=== PATIENT | female | born 1980 | race Two or more races ===

== ENCOUNTER 2024-07-24 17:11 | Emergency (ER) | payer MEDICAID, SELFPAY ==
[2024-07-24 17:41] VITALS: BP 121/80; PULSE 78; RESP 16; TEMP 36.5; O2SAT 98; BMI 26.8
--- NOTE | 2024-07-24 17:45 | PD.EDLOWEX ---
Lower Extremity Injury RME/HPI General Chief Complaint: Extremity Injury, Lower Stated Complaint: BILATERAL HIP PAIN, FALL TODAY Source: patient Arrival date/time: 07/24/24 17:11 44-year-old female with a history of a hip replacement presents to the emergency room with a chief complaint of bilateral hip pain after a fall that occurred this morning. Mode of arrival: ambulatory Limitations: no limitations Related Data Previous Rx's ?Medication ?Instructions ?Recorded acetaminophen 500 mg tablet 1,000 mg (2 x 500 mg) PO Q6H PRN 11/08/23 (Acetaminophen Extra Strength) pain #90 tabs aspirin 81 mg tablet,delayed 81 mg PO BID #60 tabs 11/08/23 release doxycycline hyclate 100 mg tablet 100 mg PO BID #14 tabs 11/08/23 gabapentin 300 mg capsule 300 mg PO .qhs #30 caps 11/08/23 sennosides 8.6 mg-docusate sodium 1 tab-cap PO QDAY #30 tabs 11/08/23 50 mg tablet (Senna-S) Allergies Allergy/AdvReac Type Severity Reaction Status Date / Time Penicillins Allergy Mild Abdominal Verified 04/30/24 08:29 Pain Review of Systems Review of Systems Systems Reviewed: All systems reviewed, normal except as documented Constitutional Constitutional: Reports system reviewed and no additional complaints, except as documented, Denies fatigue, Denies fever(s), Denies headache(s) and Denies weakness Eyes Eyes: Reports system reviewed and no additional complaints, except as documented, Denies blurry vision and Denies change in vision ENT Ears, Nose, Mouth, and Throat: Reports system reviewed and no additional complaints, except as documented, Denies otalgia, Denies headache(s), Denies nasal congestion, Denies throat swelling and Denies vertigo Cardiovascular Cardiovascular: Reports system reviewed and no additional complaints, except as documented, Denies chest pain, Denies dyspnea and Denies dyspnea on exertion Respiratory Respiratory: Reports system reviewed and no additional complaints, except as documented, Denies chest congestion, Denies cough, Denies dyspnea, Denies dyspnea on exertion and Denies wheezing Gastrointestinal Gastrointestinal: Reports system reviewed and no additional complaints, except as documented, Denies abdominal pain, Denies cramping, Denies nausea and Denies vomiting Genitourinary Genitourinary: Reports system reviewed and no additional complaints, except as documented Musculoskeletal Musculoskeletal: Reports system reviewed and no additional complaints, except as documented, Reports arthralgias and Reports joint swelling Integumentary/Breasts Skin/Breast: Reports system reviewed and no additional complaints, except as documented and Denies wounds Neurologic Neurologic: Reports system reviewed and no additional complaints, except as documented, Denies confusion, Denies headache(s), Denies lack of coordination, Denies vertigo and Denies weakness Psychiatric Psychiatric: Reports system reviewed and no additional complaints, except as documented, Denies anxiety, Denies confusion, Denies depression, Denies paranoia, Denies suicidal ideation and Denies tactile hallucinations Endocrine Endocrine: Reports system reviewed and no additional complaints, except as documented and Denies fatigue Hematologic/Lymphatic Hematologic/Lymphatic: Reports system reviewed and no additional complaints, except as documented and Denies lymphadenopathy Allergic/Immunologic Allergic/Immunologic: Reports system reviewed and no additional complaints, except as documented, Denies throat swelling, Denies urticaria and Denies wheezing Past Medical History Past Medical History NEUROLOGIC: Negative Neurological Disorders or Seizures CARDIAC: Negative Cardiac Disorders or Congestive Heart Failure RESPIRATORY: Negative Chronic Obstructive Pulmonary Disease (COPD) GASTROINTESTINAL: Negative Gastrointestinal Disorders or Hepatitis GENITOURINARY: Negative Genitourinary Disorders or Renal Disease REPRODUCTIVE: Positive Breast Cancer (right) and Previous Pregnancies MUSCULOSKELETAL: Positive Musculoskeletal Disorders and Arthritis ENDOCRINE: Negative Endocrine Disorders, Diabetes Mellitus Type 1 or Diabetes Mellitus Type 2 HEMATOLOGIC: Negative Blood Disorders OTHER HISTORY: Positive Hospitalization (surgery), Chemotherapy (2020), Radiation Therapy (2020), Chicken Pox, Measles, Mumps, Cancer and Breast Cancer (right); Negative Autoimmune Disease, Shingles, Blood Transfusions, Blood Transfusion Reaction or Anesthesia Reactions Family History FAMILY HISTORY: Negative Family Psychiatric Problems, Family Respiratory Disorders, Family Cardiac Disorders, Family Gastrointestinal Problems, Family Cancer or Family Anesthesia Reaction Surgical History SURGICAL: Positive Mastectomy (right), Tubal Ligation and Section Social History SMOKING STATUS: Never smoker ED Exam General Limitations: Present no limitations General appearance: Present alert and in no apparent distress Head Head exam: Present atraumatic Eye Eye exam: Present normal appearance, PERRL and EOMI ENT ENT exam: Present normal exam, normal oropharynx and mucous membranes moist Neck Neck exam: Present normal inspection, full ROM and trachea midline Chest Chest inspection: Present normal inspection and symmetric chest wall rise Respiratory Respiratory exam: Present normal lung sounds bilaterally Cardiovascular Cardiovascular exam: Present regular rate, normal rhythm and normal heart sounds Abdominal Exam Abdominal exam: Present soft and normal bowel sounds Extremities Exam Extremities exam: Present normal inspection and full ROM Expanded Lower Extremity Exam Hip/Pelvis exam: Present tenderness and pelvis stable; Absent full ROM, dislocation, external rotation, internal rotation or shortening Gait: observed and limited by pain Back Exam Back exam: Present normal inspection and full ROM Neurological Exam Neurological exam: Present alert, oriented X3 and CN II-XII intact Psychiatric Psychiatric exam: Present normal affect and normal mood Skin Skin exam: Present warm, dry, intact and normal color Course Quality Measures none Orders Category Date Time Status Ketorolac Inj [Toradol Inj] Med 07/24/24 17:44 Discontinued 30 mg IM X1 ONE Vital Signs Vital signs: Vital Signs Temperature 97.7 F 07/24/24 17:41 Pulse Rate 78 07/24/24 17:41 Respiratory Rate 16 07/24/24 17:41 Blood Pressure 121/80 07/24/24 17:41 Pulse Oximetry (%) 98 07/24/24 17:41 Oxygen Delivery Method Room Air 07/24/24 17:41 O2 saturation 98% within normal limits Extremity Injury, Lower MDM Narrative MDM Narrative:: 44-year-old female with a history of a hip replacement presents to the emergency room with a chief complaint of bilateral hip pain after a fall that occurred this morning. Clinically the patient appears nontoxic and in no apparent distress. Physical examination shows mild tenderness to the bilateral hips. X-rays were completed this morning and they were negative for any acute fractures. Patient states she came to the emergency room because her doctor was unable to give her her results till Monday. Patient was given pain medication and discharged patient was educated to follow-up with primary care provider return to the emergency room for any evidence of worsening signs or symptoms Patient data External records reviewed:: [facility] previous records Clinical information provided by:: patient Social determinants that could affect healthcare access:: none Patient has the following chronic illnesses:: No chronic illness How is presenting disease/condition affected by chronic disease/condition?: no chronic disease Evaluation data The following diagnostics were reviewed and interpreted by me:: lab results and radiology exam(s) Lab and/or radiology exams considered but not ordered:: Lab results and radiology exams considered in order Interpretation Summary: Hip [id number]: Total left hip arthroplasty. Satisfactory alignment No loosening of the prosthetic components Right hip intact Bones of the pelvis intact IMPRESSION: No acute hip or pelvic fracture Medications / Prescriptions Medications or Prescriptions considered but not ordered:: Medication given Medication administrations:: Medication Administration History Discontinued Medications Ketorolac Tromethamine (Ketorolac Inj 60 Mg/2 Ml Vial) 30 mg IM X1 ONE Stop: 07/24/24 17:45 Medication given Consultations Consultation(s) initiated? (list below): No Diagnosis Extremity Injury, Lower Differential Diagnosis: other (Hip fracture/hip contusion) Most likely diagnosis given after review of the tests above:: Hip contusion Admission Indicated Admission indicated?: not indicated Admission Request Was there a request for admission?: No Disposition Plan Disposition Plan: Discharge Discharge Attestation Discharge Attestation: The patient and all family members were given an opportunity to ask questions and understood the discharge instructions. Discharge instructions specifically effects, indications for sooner follow up or return to the emergency department, and the expected course of current diagnosis. Patient condition: Stable Discharge Plan Plan Patient Disposition: HOME (Self Care) Disposition Comment: Stable Prescriptions/Referrals Prescriptions/Med Rec: No Action sennosides-docusate sodium [Senna-S] 8.6-50 mg tablet 1 tab-cap PO QDAY Qty: 30 0RF aspirin 81 mg tablet,delayed release (DR/EC) 81 mg PO BID Qty: 60 0RF acetaminophen [Acetaminophen Extra Strength] 500 mg tablet 1,000 mg PO Q6H MDD 1000mg PRN (Reason: pain) Qty: 90 0RF gabapentin 300 mg capsule 300 mg PO .qhs Qty: 30 0RF doxycycline hyclate 100 mg tablet 100 mg PO BID Qty: 14 0RF Problem List Clinical Impression: Contusion of hip Patient/Caregiver Discharge Instructions Education Materials: ED Hip Contusion Additional Instructions: Please follow-up with your primary care provider in the next 24 to 48 hours. X-rays were done this morning for this injury and they were negative for any acute fracture and all prosthetic components are in satisfactory alignment. For any evidence of worsening signs or symptoms please return to the emergency room immediately Print Language: Irish Stand Alone Forms: Ronda Award Info., Patient Portal Info Letter PA/PEN TENDER Supervising Physician PA/RANDOLPH Supervising Physician: Dr. Spann
[2024-07-24] MEDS: KETOROLAC INJ 60 MG/2 ML VIAL 30 MG IM (17:56)
== END 2024-07-24 18:07 | disposition home or self-care (01) ==
LOC: SERX 18:05
PROVIDERS: Emergency Provider Emergency Medicine
DX: S70.02XA Contusion of left hip, initial encounter (principal); S70.01XA Contusion of right hip, initial encounter; W19.XXXA Unspecified fall, initial encounter
CPT/HCPCS: 96372; 99283; J1885

== ENCOUNTER → 2024-07-24 | Outpatient (CLI) | payer MEDICAID, SELFPAY ==
--- NOTE | 2024-07-24 14:48 | XR_ITS ---
Examination: Bilateral hips, AP pelvis, 5 views Technique: AP, lateral views both hips, AP pelvis, 5 views Exam date and time: July 24, 2024 1446 hours INDICATIONS: Patient fell today with injury to the left hip, left hip pain FINDINGS: Total left hip arthroplasty. Satisfactory alignment No loosening of the prosthetic components Right hip intact Bones of the pelvis intact IMPRESSION: No acute hip or pelvic fracture
== END | disposition home or self-care (01) ==
LOC: CDIM 14:23
PROVIDERS: Referring Provider Orthopaedic Surgery Adult Reconstructive Orthopaedic Surgery; Visit Provider Orthopaedic Surgery Adult Reconstructive Orthopaedic Surgery
DX: S79.912A Unspecified injury of left hip, initial encounter (principal); W19.XXXA Unspecified fall, initial encounter; Z96.642 Presence of left artificial hip joint
CPT/HCPCS: 73522

== ENCOUNTER 2024-07-26 11:07 | Outpatient (AMB) | payer MEDICAID, SELFPAY ==
--- NOTE | 2024-07-26 11:01 | PD.ORTHTELE ---
Med/Allergies Allergies & Medications Allergies Penicillins Allergy (Mild, Verified 07/26/24 11:01) Abdominal Pain Medication Reconciliation acetaminophen 500 mg tablet (Acetaminophen Extra Strength) 1,000 mg (2 x 500 mg) PO Q6H PRN pain #90 tabs 11/08/23 [Rx Confirmed 07/26/24] aspirin 81 mg tablet,delayed release 81 mg PO BID #60 tabs 11/08/23 [Rx Confirmed 07/26/24] doxycycline hyclate 100 mg tablet 100 mg PO BID #14 tabs 11/08/23 [Rx Confirmed 07/26/24] gabapentin 300 mg capsule 300 mg PO .qhs #30 caps 11/08/23 [Rx Confirmed 07/26/24] sennosides 8.6 mg-docusate sodium 50 mg tablet (Senna-S) 1 tab-cap PO QDAY #30 tabs 11/08/23 [Rx Confirmed 07/26/24] Subjective Visit Visit for: follow up visit and x-rays Immunization / Flu Flu Vaccine in the Last 12 Months: No Flu Vaccine Exclusion Criteria: No Exclusion Criteria History of Present Illness Chief complaint: Servando Levy is a pleasant 44-year-old female with a 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 She had a fall yesterday when she stepped on a rock. She reports the pain is improving. She did get x-rays and wants to make sure that she did not damage her hip Pain Pain level (0-10): 0 Ambulatory data Ambulatory device: none Treatments Improvement with previous injections: No Improvement with PT: No Review of Systems Review of Systems: All systems negative unless otherwise noted in HPI. 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 We looked at her x-rays I do not see any fracture. The right hip also demonstrates no fracture. There is no evidence of loosening and she reports that she is doing better. We will see her back as scheduled Office Procedures GNS Level of Care Nursing/Assessment Patient Status: Established Patient Nursing Assessment/Reassesment: Medication Reconciliation, Update PMH in EMR and Vital Signs Coordination of Care: Complex Care and Chronic Disease 1-5, Education Complex Pt/Fam, Consent,records obtained, informed consent, Results/Orders obtained and Staff clarify orders Special Needs: Language special needs Established Patient Charge Established Patient Point Assignment: 95 Telehealth Telemed Phone/Video with patient at home & Dr,PA,[employer]: Yes
== END 2024-07-26 11:09 | disposition home or self-care (01) ==
LOC: HODSRG 11:07
PROVIDERS: Supervising Provider Orthopaedic Surgery Adult Reconstructive Orthopaedic Surgery; Visit Provider Orthopaedic Surgery Adult Reconstructive Orthopaedic Surgery
DX: Z96.642 Presence of left artificial hip joint (principal); T14.90XA Injury, unspecified, initial encounter; W19.XXXA Unspecified fall, initial encounter
CPT/HCPCS: 99212; G0463